=== PATIENT | female | born 1985 | race Asian ===

== ENCOUNTER 2022-11-12 02:08 | Emergency (ER) | payer OTHER ==
[~2022-11-12] VITALS: Ht 160 cm; Wt 68.0 kg
--- NOTE | 2022-11-12 02:19 | NUR ---
BIBPARTNER. ABD PAIN X 2100 +VOMITING. TOOK PILLS @ 1600 7 WEEKS . GTPAL 1-0-0-0-0. PT A/OX4. TOLERATING R/A WELL WITH NO RESP DISTERSS. SAFETY MEASURES IN PLACE.
[2022-11-12] MEDS ORDERED: ONDANSETRON HCL/PF 4 MG/2 ML VIAL ONE (02:30)
[2022-11-12] MEDS ORDERED: IV NS 0.9% 1,000 ML BAG IV ONE (02:30)
[2022-11-12] MEDS ORDERED: MORPHINE SULFATE INJ 4 MG/ML DISP.SYRIN ONE (02:30)
[2022-11-12] MEDS ORDERED: ONDANSETRON HCL/PF 4 MG/2 ML VIAL IVP ONE (02:30)
[2022-11-12] MEDS ORDERED: MORPHINE SULFATE INJ 2 MG/ML DISP.SYRIN IV ONE (02:30)
--- NOTE | 2022-11-12 02:32 | NUR ---
PT USED MIFEPRISTONE INTRAVAGINAL. MADE AWARE
--- NOTE | 2022-11-12 02:33 | NUR ---
IV LINE STARTED AT RAC 18G, BLOOD DRAWN AND SENT TO LAB
--- NOTE | 2022-11-12 02:35 | NUR ---
PT NOT ABLE TO URINATE AT THIS TIME TIME D/T PAIN; WILL TRY LATER.
[2022-11-12 03:12] LABS: BASOPHILS % (AUTO) 0.2 % (0.0-2.0); EOSINOPHILS % (AUTO) 0.4 % (0.0-6.0); HEMATOCRIT 40 % (33-45); HEMOGLOBIN 13.2 g/dL (11.5-14.8); LYMPHOCYTES # (AUTO) 1.8 K/uL (0.8-4.8); LYMPHOCYTES % (AUTO) 13.3 % (20.0-44.0); MEAN CORPUSCULAR HGB CONC 33 g/dl (31.0-36.0); MEAN CORPUSCULAR VOLUME 91 fL (82-100); MONOCYTES # (AUTO) 0.5 K/uL (0.1-1.30); NEUTROPHILS % (AUTO) 82.1 % (43.0-81.0); PLATELET COUNT (AUTO) 266 K/uL (150-450); RED BLOOD CELL COUNT(AUTO) 4.39 MIL/uL (4.0-5.2); WHITE BLOOD COUNT (AUTO) 13.4 K/uL (4.3-11.0)
[2022-11-12 03:20] LABS: ALBUMIN 3.5 g/dL (3.4-5.0); BILIRUBIN,DIRECT 0.1 mg/dL (0.0-0.2); BILIRUBIN,TOTAL 0.3 mg/dL (0.2-1.0); CALCIUM, SERUM 8.3 mg/dL (8.5-10.1); CREATININE 0.9 mg/dL (0.6-1.3); POTASSIUM 3.2 mmol/L (3.5-5.1)
--- NOTE | 2022-11-12 03:38 | NUR ---
URINE COLLECTED AND SENT TO LAB
[2022-11-12 04:01] LABS: BILIRUBIN,URINE NEGATIVE (NEGATIVE); COLOR,URINE AMBER (YELLOW); LEUKOCYTE ESTERASE ,URINE NEGATIVE (NEGATIVE); NITRITE, URINE NEGATIVE (NEGATIVE); PROTEIN,URINE TRACE mg/dl (NEGATIVE); UGLUCOSE NEGATIVE (NEGATIVE); UROBILINOGEN,URINE 0.2 EU/dL (0.2)
--- NOTE | 2022-11-12 04:23 | NUR ---
US TECH AT BEDSIDE
[2022-11-12 04:34] LABS: BACTERIA,URINE Rare /HPF (None Seen); RBC,URINE 51-80 /HPF (0-2); SQUAMOUS EPITHELIAL CELL,UR Rare /HPF (None Seen); WBC,URINE 0-2 /HPF (0-3)
[2022-11-12] MEDS ORDERED: IBUP-1955 PO (09:22)
[2022-11-12 09:38] VITALS: BP 114/60
--- NOTE | 2022-11-12 09:38 | NUR ---
IV removed. Catheter intact and site benign. Pressure and 4x4 applied to site. No bleeding noted.Patient discharged to home in stable condition. Written and verbal after care instructions given. Patient verbalizes understanding of instruction.
== END 2022-11-12 09:39 | disposition home or self-care (01) ==
LOC: ER 02:10
DX: O04.89 (Induced) termination of pregnancy with other complications (principal)
CPT/HCPCS: 99285; 96374; 76856; 96361; 96375; 85025; 80048; 80076; 81001; 36415; 85730; 86850; 84702; J2270; J2405; J7030